=== PATIENT | female | born 1940 | race Caucasian/White ===

== ENCOUNTER 2017-01-19 18:26 | Emergency (ER) | payer MEDICARE, OTHER ==
[2017-01-19 16:39] LABS: BASOPHILS 0.7 %; BASOPHILS ABSOLUTE 0.04 10/3/uL (0.0-0.16); EOSINOPHILS 0.8 %; EOSINOPHILS ABSOLUTE 0.05 10/3/uL (0.0-0.53); ER CBC TAT 0 Hrs 10 Mins; HEMOGLOBIN 10.8 g/dL (12.0-16.0); LYMPHOCYTES 30.8 %; LYMPHOCYTES ABSOLUTE 1.88 10/3/uL (0.67-4.30); MEAN PLATELET VOLUME 11.2 fL (9.2-13.0); MONOCYTES 9.5 %; MONOCYTES ABSOLUTE 0.58 10/3/uL (0.21-1.20); NEUTROPHILS 58.2 %; NEUTROPHILS ABSOLUTE 3.55 10/3/uL (2.02-8.40); PROTIME (NOT ORD) 12.9 SEC (12.0-14.5); RBC DISTRIBUTION WIDTH 15.9 % (12.0-16.0); RED CELL COUNT 4.48 10/6/uL (4.0-5.6); WHITE BLOOD CELLS 6.1 10/3/uL (4.5-10.5)
[2017-01-19 16:40] LABS: HEMATOCRIT 33.7 % (36.0-48.0); MANUAL DIFF NO %; MEAN CORPUSCULAR HEMOGLOB 24.1 pg (26.0-34.0); MEAN CORPUSCULAR VOLUME 75.2 fL (80-100); PARTIAL THROMBO TIME 29.1 SEC (22.5-37.2); PLATELET COUNT 295 10/3/uL (150-400)
[2017-01-19 16:48] LABS: CHEST PAIN PROFILE TAT 0 Hrs 19 Mins; CHLORIDE, SERUM 108 MMOL/L (96-112); CO2 (CARBON DIOXIDE) 27 MMOL/L (24-34); CREATININE 0.64 MG/DL (0.55-1.02); GFR AFRICAN AMERICAN 102 ML/MIN (>=60); GFR NON AFRICAN AMERICAN 88 ML/MIN (>=60); GLUCOSE, SERUM 126 MG/DL (60-99); POTASSIUM, SERUM 3.7 MMOL/L (3.5-5.3); SODIUM, SERUM 143 MMOL/L (135-148); TROPONIN I <0.02 NG/ML (<0.05)
[2017-01-19 16:49] LABS: BUN (BLOOD UREA NITROGEN) 17 MG/DL (6-23)
[~2017-01-19 18:26] MED LIST: ALLEGRA 180 MG180 MG OR; ALLEGRA180 PO; ASAB PO; ASAEC PO; CIP5 PO; HCTZ12.5 PO; MICROZIDE PO; NEXIUM40 PO; P20 PO; PRAVAC PO; PRAVACHOL40 MG PO; PRIN10 PO; PRIN20 PO; PROAIR HFA INH; PROVHFA INH; RANITIDINE300 MG PO; SINGULAIR1 PO; SINGULAIR5 PO; SPIRIVA INH; SPRIVIA; SYMBICORT 160/41 INH INH; T200 PO; VANTIN200 MG PO; XOLAIR SC; ZESTRIL20 MG PO; ZOL50 PO; [UNRECOGNIZED DRUG - CODE] PO; [UNRECOGNIZED DRUG - OTHER]; [UNRECOGNIZED DRUG - OTHER]
== END 2017-01-19 19:02 | disposition home or self-care (01) ==
LOC: ER 18:26
PROVIDERS: Nurse Practitioner
DX: R07.89 Other chest pain (principal); E11.9 Type 2 diabetes mellitus without complications; J45.909 Unspecified asthma, uncomplicated; Z79.82 Long term (current) use of aspirin; Z79.899 Other long term (current) drug therapy
CPT/HCPCS: 71020; 80048; 83735; 84484; 85025; 85610; 85730; 93005; 96372; 99285; J1885